=== PATIENT | female | born 2000 | race Caucasian/White ===

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

== ENCOUNTER → 2022-01-11 | Outpatient (CLI) | payer OTHER, SELFPAY ==
[2022-01-14 18:07] LABS: Chlamydia By Nucleic Acid AMP Negative (Negative)
[2022-01-14 20:58] LABS: Gonococcus By Nucleic Acid AMP Negative (Negative)
== END | disposition home or self-care (01) ==
LOC: LABSPEC 12:30
PROVIDERS: PCP Nurse Practitioner Pediatrics; Visit Provider Student in an Organized Health Care Education/Training Program
DX: Z11.3 Encounter for screening for infections with a predominantly sexual mode of transmission (principal)
CPT/HCPCS: 87491; 87591

== ENCOUNTER 2024-09-30 19:17 | Inpatient (IN) | payer OTHER, SELFPAY ==
[2024-09-30 19:21] VITALS: BMI 35.8
[2024-09-30 19:38] VITALS: BP 126/83; PULSE 94; RESP 16; TEMP 37.1
[2024-09-30 19:39] VITALS: PULSE 100; O2SAT 98
--- NOTE | 2024-09-30 20:06 | HP.PCM.OB_ITS ---
HPI - General General Date of Admission: 09/30/24 Date of Service: 09/30/24 Chief Complaint: induction HPI Narrative RANDALL FRANCOIS, is a 23 F who presents for induction of labor with mild poly. EFW 87% >AC99% Maternal Data Information Final JORGE: 10/08/24 Gestational age: 39 PFSH PFSH Medical History Polyhydramnios Asthma Anxiety Seizures Encounter for screening for COVID-19 Home Medications ?Medication ?Instructions ?Recorded ?Last Taken ?Type albuterol sulfate 90 mcg/actuation 1 - 2 puff inhalati on Q6H PRN PRN 06/22/13 Unknown History aerosol inhaler (ProAir HFA) Bronchodialation aspirin 81 mg tablet,delayed 81 mg PO DAILY 09/30/24 09/29/24 History release ferrous sulfate 325 mg (65 mg 325 mg PO QODAY pregnanc y 09/30/24 09/29/24 History iron) tablet (Feosol) vit no.95-ferrous 1 tab PO DAILY 09/29/24 History fumarate 28 mg-folic acid 800 mcg tablet () Allergy/AdvReac Type Severity Reaction Status Date / Time meningococcal vaccine A,C,Y Allergy Hives Verified 09/30/24 20:09 and W-1 Surgical History History of surgery History of surgery Social History Smoking Status: Never smoker History 1 Elective abortions Hx Para 0 Spontaneous abortions Hx # Term Pregnancies Ectopic pregnancies Hx # Pregnancies Multiple births # of living children ROS Constitutional Constitutional: Denies fatigue, fever(s) or malaise Eyes Eyes: Denies change in vision ENT HEENT: Denies dizziness or headache(s) Cardiovascular Cardiovascular: Denies chest pain, dyspnea or lightheadedness Respiratory/Chest Respiratory/Chest: Denies cough or dyspnea Gastrointestinal Gastrointestinal: Denies change in bowel habits Genitourinary Genitourinary: Denies burning urination or genital lesions Integumentary Integumentary: Denies rash Neurologic Neurologic: Denies confusion, dizziness, headache(s), numbness or weakness Vital Signs Vital Signs Vital Signs: 09/30/24 19:38 09/30/24 19:38 09/30/24 19:38 Temperature Temperature Source Temporal Pulse Rate 94 Respiratory Rate Blood Pressure 126/83 H BP Systolic 126 BP Diastolic 83 Pulse Ox 09/30/24 19:38 09/30/24 19:38 09/30/24 19:39 Temperature 98.7 F Temperature Source Pulse Rate 100 Respiratory Rate 16 Blood Pressure BP Systolic BP Diastolic Pulse Ox 09/30/24 19:39 Temperature Temperature Source Pulse Rate Respiratory Rate Blood Pressure BP Systolic BP Diastolic Pulse Ox 98 Weight Weight: 116.573 kg Body Mass Index (BMI) 35.8 Physical Exam Const alert and no apparent distress General Appearance: cooperative HEENT normocephalic Resp normal respiratory effort Cardio regular rate GI soft to palpation GI Narrative: gravid, nontender, appropriate for gestational age Extremity no calf tenderness General Extremity: edema Skin no wounds Rashes: No rashes noted Psych activity/motor behavior normal Labs Labs Labs: Blood Type O POSITIVE Antibody Screen NEGATIVE Hct 35.0 % (37-47) L Hgb 11.7 g/dL (12.0-15.0) L Syphilis Total Ab Nonreactive (Nonreactive) Chlamydia DNA (DARA) Negative (Negative) N.gonorrhoeae DNA (DARA) Negative (Negative) Assessment & Plan (1) 39 weeks gestation of : (2) Polyhydramnios affecting in third trimester: PLAN: Plan cytotec/rees/pit
[2024-09-30 20:15] LABS: Absolute Lymphocyte Count 1.18 X10^3/uL (0.83-4.51); Absolute Neutrophil Count 5.2 X10^3/uL (2.0-7.7); Basophil# 0.01 X10^3/uL; Basophil% 0.1 % (0-1); Eosinophil# 0.08 X10^3/uL; Eosinophils% 1.1 % (0-5); Hemoglobin 11.7 g/dL (12.0-15.0); Lymphocyte # 1.18 X10^3/ul (0.83-4.51); Lymphocyte % 16.7 % (19-41); Mean Corp Hgb Conc 33.4 g/dL (32-36); Mean Corpuscular Hgb 29.6 pg (27.0-32.0); Mean Corpuscular Volume 88.6 fL (81-99); Mean Platelet Vol. 11.6 fl (6.2-12.0); Monocyte# 0.59 X10^3/uL; Monocyte% 8.4 % (0-10); NRBC Flagged by Analyzer 0 % (0-5); Neutrophil # 5.18 X10^3/uL (2.7-7.7); Neutrophil % 73.4 % (47-70); Platelet Count 191 K/mm3 (150-450); RBC Distribution Width SD 45.2 fl (35.1-43.9); Red Blood Count 3.95 M/mm3 (4.2-5.4); White Blood Count 7.1 K/mm3 (4.4-11.0)
[2024-09-30] MEDS: miSOPROStol 25 MCG TABLET PO (20:51)
[2024-09-30 20:55] VITALS: BP 130/87; PULSE 83; RESP 16; TEMP 36.5; O2SAT 98
[2024-09-30 20:56] LABS: Syphilis Antibodies Nonreactive (Nonreactive)
[2024-09-30] MEDS: 0.9% Saline Lock 10 ML Syringe IV (21:15)
[2024-10-01] VITALS (70 sets, daily range): BP systolic 110–137; BP diastolic 59–88; PULSE 63–96; RESP 15–20; TEMP 36.3–37; O2SAT 86–100
[2024-10-01] MEDS: miSOPROStol 25 MCG TABLET PO ×2 (00:59→05:03)
[2024-10-01] MEDS: 0.9% Normal Saline Single 100 ML IV.SOLN. INTRA-UTER (06:54)
--- NOTE | 2024-10-01 07:19 | PCM.PN.OB ---
Subjective Subjective rees bulb placed without difficulty. 1 cm/ 60/-3 posterior Objective Data Objective Data Vital Signs: Vital Signs Temp Pulse Resp BP Pulse Ox 97.6 F L 66 17 118/79 99 10/01/24 07:16 10/01/24 07:16 10/01/24 07:16 10/01/24 07:16 10/01/24 07:16 Weight: 116.573 kg Body Mass Index (BMI) 35.8 Lab / Micro Data 09/30/24 19:55 Labs: Laboratory Results - last 24 hr 09/30/24 19:55: WBC 7.1, RBC 3.95 L, Hgb 11.7 L, Hct 35.0 L, MCV 88.6, MCH 29.6, MCHC 33.4, RDW Std Deviation 45.2 H, RDW Coeff of Radha 14.0, Plt Count 191, MPV 11.6, Immature Gran % (Auto) 0.300, Neut % (Auto) 73.4 H, Lymph % (Auto) 16.7 L, [place] % (Auto) 8.4, Eos % (Auto) 1.1, Baso % (Auto) 0.1, Absolute Neuts (auto) 5.2, Absolute Lymphs (auto) 1.18, Nucleated RBC % 0, Syphilis Total Ab Nonreactive, Blood Type O POSITIVE, Antibody Screen NEGATIVE NST FHR Rate Baby A Variability:: Moderate Accelerations:: 15 x 15 Decelerations:: None NST Reactive:: Yes FHR Category:: Category I Assessment & Plan (1) Polyhydramnios affecting in third trimester: (2) 39 weeks gestation of :
[2024-10-01] MEDS: Ondansetron 4 MG/2 ML Vial IV (09:34)
[2024-10-01] MEDS: Lactated Ringers 1,000 ML 50 ML IV (10:11)
[2024-10-01] MEDS: Oxytocin 15 Units/NS 250ml 15 UNITS/250 ML IV.SOLN 2 UNITS IV (10:30)
[2024-10-01] MEDS: fentaNYL-bupivacaine (epidural) 100 ML BAG EPIDURAL (11:43)
[2024-10-01] MEDS: Penicillin G Pot 5,000,000 UNITS in 0.9% Normal Saline (100mL MB+) 100 ML 150 UNITS IV (12:00)
--- NOTE | 2024-10-01 12:16 | PN.OBGYN_ITS ---
Subjective Subjective Seen at bedside. Comfortable with epidural. Objective Data Objective Data Vital Signs: Vital Signs Temp Pulse Resp BP Pulse Ox 97.6 F L 71 18 121/72 H 100 10/01/24 07:16 10/01/24 12:13 10/01/24 11:42 10/01/24 11:42 10/01/24 12:13 Weight: 257 lb Body Mass Index (BMI) 35.8 Intake & Output: Intake and Output for Last 24 Hours 09/29/24 09/30/24 10/01/24 23:59 23:59 23:59 Intake Total 600.22 / 600.22 Balance 600.22 / 600.22 Lab / Micro Data 09/30/24 19:55 Labs: Laboratory Results - last 24 hr 09/30/24 19:55: WBC 7.1, RBC 3.95 L, Hgb 11.7 L, Hct 35.0 L, MCV 88.6, MCH 29.6, MCHC 33.4, RDW Std Deviation 45.2 H, RDW Coeff of Radha 14.0, Plt Count 191, MPV 11.6, Immature Gran % (Auto) 0.300, Neut % (Auto) 73.4 H, Lymph % (Auto) 16.7 L, [place] % (Auto) 8.4, Eos % (Auto) 1.1, Baso % (Auto) 0.1, Absolute Neuts (auto) 5.2, Absolute Lymphs (auto) 1.18, Nucleated RBC % 0, Syphilis Total Ab Nonreactive, Blood Type O POSITIVE, Antibody Screen NEGATIVE Assessment & Plan (1) Polyhydramnios affecting in third trimester: (2) 39 weeks gestation of : PLAN: Plan CE /-2 AROM for clear fluid IUPC placed without difficulty Cat. 1 tracing Continue present plan of care Dr. Ribeiro on unit and updated on A&P
[2024-10-01] MEDS: Lactated Ringers 1,000 ML 200 ML IV (13:05)
[2024-10-01] MEDS: Penicillin G 3,000,000 Units 50 ML 100 UNITS IV (16:40)
[2024-10-01] MEDS: Oxytocin 15 Units/NS 250ml 15 UNITS/250 ML IV.SOLN 83 UNITS IV (17:45)
--- NOTE | 2024-10-01 17:54 | OB.VAGDELI_ITS ---
Assessment & Plan (1) (spontaneous vaginal delivery): (2) Laceration, obstetrical, second degree: (3) Anxiety: (4) Asthma: Maternal Data Information JORGE Calculator Estimated Delivery Date Method Current WG Current Estimate 10/05/24 Manual 39w 3d Vaginal Delivery Maternal Presentation Maternal Presentation: Medically Indicated Induction Maternal Presentation: at 39.3 weeks gestation for induction of labor for polyhydramnios. Type of Induction: Pitocin, Hill Bulb, Amniotomy and Cytotec Medical Reason for Induction: Other (polyhydramnios) Vaginal Delivery Information Procedure Performed: Spontaneous Vaginal Delivery Surgeon/Practitioner: Candy Hanna Date of Procedure: 10/01/24 Pre-Procedure Diagnosis: Term gestation, induction of labor Post-Procedure Diagnosis: , live female infant Type of anesthesia: Epidural Estimated Blood Loss: 400 Time of Delivery: 17:08 Findings Description of procedure: Patient progressed to complete dilation. With good maternal effort, head delivered followed by anterior shoulder and remainder of body without any force, delay, or traction. Vigorous female was delivered atraumatically and placed on maternal abdomen. Short cord noted. Pitocin IV started for active management of the third stage of labor. 3 vessel cord clamped and cut after delay and placed immediately skin to skin with patient. Cord blood collected. Placenta delivered spontaneously and intact. A second degree laceration and right labial laceration was repaired in usual fashion using 3-0 Vicryl Rapid. Hemostasis obtained. Vaginal sweep performed. Fundus is firm 3 below U and bleeding is hemostatic. Sponge and sharps counts correct. Patient and bonding well at this time. Dr. Ribeiro notified of delivery. Routine post orders placed. Presentation: Vertex Amniotic Membrane Rupture Type: Artificial Amniotic Fluid Description: Clear Placental Delivery Description: Spontaneous Placenta Disposition: [facility] Specimen collected: No Cord Vessel Description: 3 Vessels Cord Entanglement: None Nuchal Cord Compression: Without compression Infant A Gender: Female (1 minute): 9 (5 minute): 9 Delayed Cord Clamping: Yes R And D Lab Technician smoking pipe mounter: No Post Vaginal Deli Medications given after delivery: IV Pitocin Episiotomy Description: None Laceration: 2nd degree Complication Complications: No
[2024-10-02 00:20] VITALS: BP 133/94; PULSE 68; RESP 16; TEMP 36.8; O2SAT 98
[2024-10-02] MEDS: Ibuprofen 600 MG Tablet PO ×2 (00:23→08:47)
[2024-10-02 05:31] VITALS: BP 140/75; PULSE 80; RESP 14; TEMP 36.8
[2024-10-02] MEDS: Acetaminophen 500 MG Tablet 1000 MG PO ×2 (06:06→12:41)
--- NOTE | 2024-10-02 07:36 | PCM.PN.CNM ---
Subjective Subjective Patient seen at bedside. Denies any pain. Ambulating and voiding without difficulty. Lochia decreasing. Objective Data Objective Data Vital Signs: Vital Signs Temp Pulse Resp BP Pulse Ox O2 Del Method 98.2 F 80 14 140/75 H 98 Room Air 10/02/24 05:31 10/02/24 05:31 10/02/24 05:31 10/02/24 05:31 10/02/24 00:20 10/02/24 05:31 Oxygen Delivery Method Room Air Weight: 257 lb Body Mass Index (BMI) 35.8 Intake & Output: Intake and Output for Last 24 Hours 09/30/24 10/01/24 10/02/24 23:59 23:59 23:59 Intake Total 2460.00 / 2460.00 Output Total 750 / 750 2200 / 2200 Balance 1710.00 / 1710.00 -2200 / -2200 Lab / Micro Data Attestation: I reviewed the patient's lab results. 09/30/24 19:55 ROS Eyes Eyes: Denies blurry vision, change in vision or spots in vision ENT HEENT: Denies dizziness or headache(s) Cardiovascular Cardiovascular: Denies abdominal pain, chest pain or dyspnea Respiratory/Chest Respiratory/Chest: Denies cough, dyspnea, shortness of breath at rest or shortness of breath with exertion Gastrointestinal Gastrointestinal: Denies abdominal pain, diarrhea or vomiting Genitourinary Genitourinary: Denies change in urinary stream, difficulty urinating or dysuria Musculoskeletal Musculoskeletal: Reports none Integumentary Integumentary: Denies rash Neurologic Neurologic: Denies dizziness, headache(s), memory loss or weakness Physical Exam Const alert and no apparent distress General Appearance: cooperative and comfortable Exam Limitations: no limitations HEENT normocephalic Eyes General Eye: normal appearance of both eyes Neck full ROM General: normal visual inspection Chest Chest: symmetrical chest wall rise Resp normal respiratory effort and normal air movement Effort and Inspection: symmetric chest movement Auscultation: clear to auscultation bilaterally Cardio regular rate and regular rhythm GI normal to inspection, nondistended, normoactive bowel sounds Back/Spine normal ROM Extremity full ROM and no calf tenderness General Extremity: normal exam except as noted Skin no rashes or lesions noted Neuro oriented x3 Speech: speech normal Psych mental status grossly normal Thought Process: normal thought process Assessment & Plan (1) Laceration, obstetrical, second degree: (2) (spontaneous vaginal delivery): (3) Anxiety: (4) Asthma: (5) Care and examination of lactating mother: PLAN: Plan Pain control support- hand expressing and spoon feeding Increase ambulation today Anticipate discharge home tomorrow
[2024-10-02 08:40] VITALS: BP 123/85; PULSE 90; RESP 16; TEMP 36.7; O2SAT 97
[2024-10-02] MEDS: Caffeine 200 MG Tablet 400 MG PO (08:47)
[2024-10-02] MEDS: Senna/Docusate Sodium 1 Tablet PO (12:41)
[2024-10-02 12:52] VITALS: BP 135/92; PULSE 84; RESP 16; TEMP 36.2; O2SAT 99
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
[2024-10-02 17:33] VITALS: BP 141/86; PULSE 72; RESP 16; TEMP 36.7; O2SAT 99
--- NOTE | 2024-10-06 11:00 | NURSING ---
Follow up phone call: Patient did not answer LVM.
== END 2024-10-02 19:50 | disposition home or self-care (01) | DRG 807 ==
PROVIDERS: Admitting Provider Obstetrics & Gynecology; PCP Family Medicine; Referring Provider Obstetrics & Gynecology; Visit Provider Obstetrics & Gynecology
DX: O40.3XX0 Polyhydramnios, third trimester, not applicable or unspecified (principal); Z37.0 Single live birth; O99.344 Other mental disorders complicating childbirth; F41.9 Anxiety disorder, unspecified; J45.909 Unspecified asthma, uncomplicated; O99.52 Diseases of the respiratory system complicating childbirth; O69.3XX0 Labor and delivery complicated by short cord, not applicable or unspecified; O70.1 Second degree perineal laceration during delivery; Z79.82 Long term (current) use of aspirin; Z3A.39 39 weeks gestation of pregnancy
CPT/HCPCS: 59025; 59050; 85025; 86780; 86850; 86900; 86901; 99221; A4216; G0378; J2405